=== PATIENT | female | born 1930 | race Native Hawaiian/Other Pacific Islander ===

== ENCOUNTER 2018-09-05 09:01 | Outpatient (CLI) | payer OTHER ==
[2018-09-05 10:10] LABS: POTASSIUM 4.1 mmol/L (3.6-5.2)
[2018-09-05 10:11] LABS: PLATELET COUNT 105 K/uL (152-353)
== END 2018-09-05 19:21 | disposition home or self-care (01) ==
LOC: LABW 09:01 → US 09:01
PROVIDERS: Internal Medicine
DX: N18.3 Chronic kidney disease, stage 3 (moderate) (principal); R82.998 Other abnormal findings in urine
CPT/HCPCS: 36415; 80053; 81000; 82043; 82330; 82570; 83735; 84100; 84155; 85027; 87088

== ENCOUNTER 2018-11-06 10:37 | Outpatient (CLI) | payer OTHER ==
[2018-11-06 11:04] LABS: PLATELET COUNT 137 K/uL (152-353)
[2018-11-06 11:31] LABS: POTASSIUM 4.5 mmol/L (3.6-5.2)
== END 2018-11-06 19:45 | disposition home or self-care (01) ==
LOC: LABW 10:37
PROVIDERS: Internal Medicine Cardiovascular Disease
DX: I10 Essential (primary) hypertension (principal); Z79.899 Other long term (current) drug therapy
CPT/HCPCS: 36415; 80053; 80061; 84443; 85027

== ENCOUNTER 2018-12-03 10:14 | Outpatient (CLI) | payer OTHER | END 2018-12-03 21:06 | disposition home or self-care (01) | LOC: LABW 10:14 | DX: N39.0 Urinary tract infection, site not specified (principal) | CPT/HCPCS: 81000; 82043; 82570; 84155; 87077; 87086; 87088; 87185; 87186 ==

== ENCOUNTER 2019-02-04 09:08 | Outpatient (CLI) | payer OTHER | END 2019-02-04 20:29 | disposition home or self-care (01) | LOC: LABW 09:08 | DX: N39.0 Urinary tract infection, site not specified (principal) | CPT/HCPCS: 81000; 82043; 82570; 84155; 87077; 87086; 87088; 87186 ==

== ENCOUNTER 2019-04-02 17:22 | Outpatient (CLI) | payer OTHER | END 2019-04-02 23:38 | disposition home or self-care (01) | LOC: LABW 17:22 | DX: N39.0 Urinary tract infection, site not specified (principal) | CPT/HCPCS: 81000; 82043; 82570; 84155; 87077; 87086; 87088; 87186 ==

== ENCOUNTER 2019-04-21 16:21 | Outpatient (CLI) | payer OTHER | END 2019-04-21 20:41 | disposition home or self-care (01) | LOC: US 16:21 | DX: R10.2 Pelvic and perineal pain (principal) ==